=== PATIENT | female | born 1945 | race Caucasian/White ===

== ENCOUNTER 2017-12-04 07:21 | Outpatient (CLI) | payer MEDICARE | END 2017-12-04 07:22 | disposition home or self-care (01) | LOC: BICULT 07:21 | PROVIDERS: ATTEND Internal Medicine Gastroenterology | DX: K74.60 Unspecified cirrhosis of liver (principal); D71 Functional disorders of polymorphonuclear neutrophils; I85.00 Esophageal varices without bleeding | CPT/HCPCS: 76705 ==

== ENCOUNTER 2018-03-16 07:15 | Outpatient (CLI) | payer MEDICARE | END 2018-03-16 07:16 | disposition home or self-care (01) | LOC: BICULT 07:15 | DX: K74.69 Other cirrhosis of liver (principal); K72.90 Hepatic failure, unspecified without coma; K76.6 Portal hypertension; C64.1 Malignant neoplasm of right kidney, except renal pelvis; E43 Unspecified severe protein-calorie malnutrition; R18.8 Other ascites; N28.89 Other specified disorders of kidney and ureter | CPT/HCPCS: 76700 ==

== ENCOUNTER 2018-04-12 10:20 | Inpatient (IN) | payer MEDICARE ==
[2018-04-12] MEDS ORDERED: ePHEDrine/0.9% NaCl/PF SYRINGE 50 mg/10 ml ONE (11:14)
[2018-04-12] MEDS ORDERED: PHENYLEPHRINE-NS 100 MCG/ML 10 ML SYRINGE ONE (11:14)
--- NOTE | 2018-04-12 11:19 | RAD ---
FRONTAL VIEW CHEST: Date: 04/12/18 INDICATION: Emergency exam, decreased renal function. FINDINGS: There are granulomatous calcifications of the left chest. Lungs are hypoinflated with interstitial pr ominence. Cardiac silhouette is within normal limits of size for portable technique. No significant v ascular congestion. IMPRESSION: 1. Granulomatous calcifications. 2. Hypoinflated lungs with mild interstitial prominence, which could be related to interstitial joaquin g disease. Correlate clinically. POS: [facility]
[2018-04-12 11:26] LABS: #Eosinphils 0.2 thou/uL (0.0-0.7); #Lymphocytes 1.2 thou/uL (1.20-3.40); #Monocytes 1.5 thou/uL (0.11-0.59); #Neutrophils 9.3 thou/uL (1.40-6.50); %Basophils 0.3 % (0.0-1.0); %Eosinophils 1.4 % (0.0-10.0); %Lymphocytes 9.9 % (21.0-51.0); %Monocytes 12.5 % (0.0-10.0); %Neutrophils 75.9 % (42.0-75.0); Hemoglobin 9.9 g/dL (12.0-16.0); Mean Corpuscular HGB CONC 31.9 g/dL (32.0-36.0); Mean Corpuscular Hemoglobin 32.9 pg (27.0-31.0); Mean Platelet Volume 7.4 fL (7.4-10.4); Platelet Count 165 thou/uL (130-400); RBC Distribution Width 14.4 % (11.5-14.5); Red Blood Cell (RBC) Count 3.01 mill/uL (4.20-5.40); White Blood Cell (WBC) Count 12.2 thou/uL (4.8-10.8)
[2018-04-12 11:49] LABS: ALT (SGPT) 18 U/L (8-55); AST (SGOT) 33 U/L (5-34); Albumin 2.2 g/dL (3.4-4.8); Alkaline Phosphatase 114 U/L (40-150); Anion Gap 13 mmol/L (10-20); BUN (Urea Nitrogen) 46 mg/dL (9.8-20.1); Bilirubin, Total 1.6 mg/dL (0.2-1.2); Calc. Creatinine Clearance 0 mL/min (70-130); Carbon Dioxide 21 mmol/L (23-31); Chloride 102 mmol/L (98-107); Estimated GFR-MDRD 14; Globulin 4.3 g/dL (2.4-3.5); Glucose 128 mg/dL (83-110); Potassium 4.8 mmol/L (3.5-5.1); Protein, Total 6.5 g/dL (6.0-8.3); Sodium 131 mmol/L (136-145)
[2018-04-12 11:54] LABS: CKMB 2.2 ng/mL (0-6.6); Troponin I 0.035 ng/mL (< 0.028)
[2018-04-12 12:09] LABS: HBSAB Concentration 0.89 mIU/mL; HBSAg Index 0.19 S/CO (0-0.99); Hep B Core Total Ab Non-Reactive (NonReactive); Hep B Core Total Index 0.24 S/CO (0-0.79); Hep B Surf AB Non-Reactive (NonReactive); Hep B Surf Ag Non-Reactive S/CO (NonReactive); Hep C IgG Ab Non-Reactive (NonReactive); Hep C Index 0.14 S/CO (0-0.79)
[2018-04-12 12:40] LABS: Bilirubin Negative (Negative); Blood, Urine Negative (Negative); Clarity CLEAR (Clear); Glucose, Urine (Dipstick) Negative (Negative); Leukocyte Negative (Negative); Nitrite Negative (Negative); Protein, Urine (Dipstick) Negative (Neg-Trace); Specific Gravity, Urine 1.012 (1.002-1.036); Urobilinogen 0.2 mg/dL (0.2-1.0)
[2018-04-12] MEDS ORDERED: CEFAZOLIN/Water 2 GM/20 ML SYRINGE SLOW IVP SCH (14:15)
[2018-04-12] MEDS ORDERED: Meperidine HCl/PF 25 MG/ML VIAL ONE (15:25)
--- NOTE | 2018-04-12 15:27 | HP ---
DATE OF ADMISSION: 04/12/2018 PRIMARY CARE PROVIDER: Ole Israel M.D. LIBRARY CIRCULATION CLERK: Bill Masters M.D. HISTORY OF PRESENT ILLNESS: [facility] being re ferred to the emergency room by Dr. Masters. The patient is being referred for placement of hemodial ysis access and initiation of hemodialysis in an end-stage renal failure patient who is symptomatic. The patient is symptomatic with extreme fatigue, weakness, shortness of breath, chronic edema in her legs, minimal nausea. Past medical history is pertinent for cirrhosis. She is followed by a doctor in [place]. Her creatinine was 1 a year ago. She now has a creatinine of 3.56 with a calculated GF R of 13. PAST MEDICAL HISTORY: Pertinent for cirrhosis of the liver, history of bladder tumors post resection of same [address] Carranza, history of right lower renal mass, liver cirrhosis with ascit es. CURRENT MEDICATIONS: As available, Fosamax 70 mg every 7 days, Align 4 mg daily, Ziac 5/6.25 one a d ay, Cipro 250 b.i.d., Lasix 20 mg a day, levothyroxine 88 mcg a day, VESIcare 5 mg a day, tramadol 50 mg p.o. b.i.d. p.r.n. ALLERGIES: No known medical allergies. SOCIAL HISTORY: . Lives with her . Cared by her son. She has no history of alcohol or tobacco. CODE STATUS: Full. is next of kin. FAMILY HISTORY: Family available. They state that there is no history of any inheritable diseases i n the parents, aunts, uncles. REVIEW OF SYSTEMS: Difficult. The patient is a very poor historian, but she admitted to no headache , dizziness or fainting. Eyes: No blurred vision or double vision. Ear, nose and throat: No ear p ain or drainage. No nasal bleeding. No trouble swallowing. Cardiac: No chest pain, orthopnea or p aroxysmal nocturnal dyspnea. Respirations: Some shortness of breath especially with exertion. No c ough or wheezing. Gastrointestinal: Minimal nausea, no vomiting, no abdominal pain, no diarrhea. G enitourinary: She still makes urine. No blood or painful urination. Musculoskeletal: Long time sw elling in her legs, now worse. No pain. Neurologic: No strokes, seizures by history. Psychiatric: No anxiety, depression. Skin: Easy bruising, no rash. Heme/Lymph: No tender or swollen lymph no mireille under arms or neck or groin. PHYSICAL EXAMINATION: GENERAL: Alert, oriented and cooperative. VITAL SIGNS: Blood pressure 99/63, pulse 84, respirations 18, temperature 97.7. HEENT: Reveal pupils equal, round and reactive to light. Extraocular movements are intact. Sclerae are white. Tympanic membranes are clear. Nose clear. Oral mucous membranes are wet. Dental hygie ne is good. NECK: Supple without jugular venous distention. No adenopathy or thyromegaly. CHEST: Clear to auscultation and percussion. HEART: Regular rate and rhythm. First and second heart sounds were clear. ABDOMEN: Soft, mildly distended with a fluid wave. Bowel sounds were normal. There is no hepatospl enomegaly. EXTREMITIES: Reveal 2 to 3+ edema to the knees. No cyanosis or clubbing. SKIN: Warm and dry with ecchymoses on her forearms. HEME/LYMPH: No tender or swollen lymph nodes in axilla, inguinal or cervical area. PULSES: Carotid, radial and femoral pulses are intact. Pedal pulses obscured by edema. LABORATORY DATA: Sodium 131, potassium 4.8, BUN 46, creatinine 3.31. Blood sugar 128. Bilirubin mi nimally elevated at 1.6. Transaminases normal. Urine was clear. White count 12.2, hemoglobin 9.9, platelet count 165,000. IMAGING: Chest x-ray, no cardiomegaly, CHF or infiltrate, reviewed by me. EKG, regular sinus rhythm , no acute abnormality, reviewed by me. ADMITTING DIAGNOSES: Chronic kidney disease requiring hemodialysis, anemia of chronic kidney disease , cirrhosis of the liver, hypothyroidism, history of bladder tumors. PLAN: Dr. Santiago Ibarra will place hemodialysis catheter today. Dialysis will be started tomorrow. Current medications will be reviewed and instituted as necessary.
[2018-04-12] MEDS ORDERED: Bupivacaine HCl 0.5%/Epinephrine 1:200,000/PF 30 ml Vial ONE (15:28)
[2018-04-12] MEDS ORDERED: Sodium Chloride 0.9% 30 ML ONE (15:28)
[2018-04-12] MEDS ORDERED: Lidocaine 2% PF Inj 2 ML VIAL ONE (15:28)
[2018-04-12] MEDS ORDERED: Heparin 10,000 UNITS/1 ML VIAL ONE ×2 (15:28→18:18)
[2018-04-12] MEDS ORDERED: Albumin 25% 25 GM/100 ML BOT IVPB SCH (15:45)
[2018-04-12] MEDS ORDERED: Tuberculin PPD 0.1 ML VIAL I-DERMAL SCH (16:30)
[2018-04-12] MEDS ORDERED: CEFAZOLIN/Water 2 GM/20 ML SYRINGE ONE (17:09)
[2018-04-12] MEDS ORDERED: Midazolam HCl 2 mg/2 ml Vial ONE (17:35)
[2018-04-12] MEDS ORDERED: Fentanyl 100 MCG/2 ML VIAL ONE (17:35)
[2018-04-12] MEDS ORDERED: Propofol 500 MG/50 ML VIAL ONE ×2 (17:36→17:38)
[2018-04-12] MEDS ORDERED: Ketamine 50 MG/ML VIAL ONE (17:36)
--- NOTE | 2018-04-12 19:35 | RAD ---
PORTABLE CHEST ONE VIEW: 04/12/2018 7:05 p.m. HISTORY: Central line placement. FINDINGS: There has been interval placement of a right internal jugular dialysis catheter with the tip in the p rojection of the SVC since the earlier exam of 10:12 a.m. on the same date. No pneumothorax is seen. The remainder exam is otherwise stable. POS: [facility]
--- NOTE | 2018-04-12 20:55 | HP ---
HISTORY OF PRESENT ILLNESS: Coty Fontenot is a 72-year-old female followed Dr. Girard for chronic ki dney disease. She has had progression of her kidney failure and presents to the emergency room, had a right antecubital IV started and I have been asked to see her regarding placement of a dialysis cat heter. Plan is to place hemodialysis catheter today as well as a central line. We will obtain ultra sound vein mapping for later placement of a fistula. Her skin is fragile, ecchymotic and it is likel y she will need a prosthetic graft at a later time. ALLERGIES: None. TOBACCO: None. ALCOHOL: None. HOME MEDICATIONS: Include tramadol, VESIcare, levothyroxine, furosemide, Colace, bisoprolol hydrochl orothiazide daily, Align 4 mg daily, Tessalon daily, Fosamax daily. PAST SURGICAL HISTORY: Transurethral resection of a bladder tumor, 11/26/[address] Carranza, hi story of right lower pole renal mass suspicious for renal cell carcinoma, liver cirrhosis secondary t o jaundice and ascites in the past. PAST SURGICAL HISTORY: Other than above, noncontributory. PHYSICAL EXAMINATION: GENERAL: Patient is thin and extremities edematous. Ecchymosis of upper extremities. LUNGS: Clear to auscultation. Rhonchi at base. CARDIAC: Regular rate and rhythm. ABDOMEN: Soft, slightly protuberant. White count 12, hemoglobin 9, sodium 131, BUN 46, bilirubin 1.6, has been elevated at 3.8 in the pas t. Abdominal ultrasound on 07/29/2016, biliary sludge. Bile duct 4 mm. Liver was unremarkable. No evidence of ascites at that time. Currently, sodium 131, potassium 4.8, BUN 46, creatinine 3.31, GF R 14. White count 12, hemoglobin 9. ASSESSMENT AND PLAN: 1. End-stage renal disease. Plan for placement of hemodialysis catheter central line, planned that today, she ate breakfast at 6:00 this morning. We will plan that later this afternoon. 2. Poor conditioning. She has not been out of bed and ambulated in several months. She has had a p hysical deterioration. 3. Lives at home with family. 4. Antecubital IV present, has been removed. 5. We will need director long term care dialysis access. We will plan ultrasound vein mapping both arms and prese rve arms for dialysis access.
[2018-04-12] MEDS ORDERED: Acetaminophen 325 MG TAB PO PRN (23:33)
[2018-04-12] MEDS ORDERED: Ondansetron ODT 4 MG TAB PO PRN (23:33)
[2018-04-12] MEDS ORDERED: Zolpidem Tartrate 5 MG TAB PO PRN (23:33)
--- NOTE | 2018-04-12 23:55 | CON ---
DATE OF CONSULTATION: 04/12/2018 CONSULTING PHYSICIAN: Dr. Hinojosa REASON FOR CONSULTATION: Acute kidney injury and worsening creatinine. REASON FOR ADMISSION: Swelling. HISTORY OF PRESENT ILLNESS: A 72-year-old female with history of cirrhosis, bladder tumors, adenoma, liver cirrhosis, came to the hospital with swelling and worsening kidney function. The patient is i n need for dialysis and is being admitted. The patient is getting swelling. No fever or chills. No nausea, vomiting. PAST MEDICAL HISTORY: Positive for cirrhosis, bladder tumors, lower renal mass, liver cirrhosis. PAST SURGICAL HISTORY: Abdominal surgery. HOME MEDICATIONS: Fosamax, Align, Cipro, levothyroxine, VESIcare. DRUG ALLERGIES: No known drug allergies. SOCIAL HISTORY: No smoking, alcohol or drugs. FAMILY HISTORY: No history of kidney disease. REVIEW OF SYSTEMS: The following complete review of systems was negative, unless otherwise mentioned in the HPI or below: Constitutional: Weight loss or gain, ability to conduct usual activities. Sk in: Rash, itching. Eyes: Double vision, pain. ENT/Mouth: Nose bleeding, neck stiffness, pain, te nderness. Cardiovascular: Palpitations, dyspnea on exertion, orthopnea. Respiratory: Shortness of breath, wheezing, cough, hemoptysis, fever or night sweats. Gastrointestinal: Poor appetite, abdom inal pain, heartburn, nausea, vomiting, constipation, or diarrhea. Genitourinary: Urgency, frequenc y, dysuria, nocturia. Musculoskeletal: Pain, swelling. Neurologic/Psychiatric: Anxiety, depression . Allergy/Immunologic: Skin rash, bleeding tendency. PHYSICAL EXAMINATION: GENERAL: This is a well-built female in no apparent distress. VITAL SIGNS: Temperature 97.7, pulse 84, respiratory 18, blood pressure 157/64. HEENT: Atraumatic, normocephalic. Oral mucosa is moist. NECK: Supple, no masses. HEART: S1, S2. Rate and rhythm regular. RESPIRATORY: Clear. ABDOMEN: Soft. MUSCULOSKELETAL: 1-2+ edema. DERMATOLOGIC: No skin rash. NEUROLOGIC: Alert, awake. PSYCHIATRIC: Mood and affect. LABORATORY: Potassium 4.8, BUN 46, creatinine is 3.3, hemoglobin is 9.9. ASSESSMENT AND PLAN: 1. End-stage renal disease. Plan is to start on dialysis. 2. Edema, remove fluid as tolerated. The patient is high risk for complication. 3. Hypotension given the cirrhosis. 4. Hyponatremia, limit fluid intake. 5. Hypoalbuminemia. We will add Nepro with meals. 6. Anemia. We will add Epogen with dialysis. 7. Hypotension. 8. History of cirrhosis. The patient is at high risk for dialysis. We will attempt to have dialysis. Family is aware. We wi ll continue to follow and appreciate help from Surgery for access placement. Thank you for the consult.
--- NOTE | 2018-04-13 01:05 | OP ---
DATE OF PROCEDURE: 04/12/2018 PREOPERATIVE DIAGNOSES: End-stage renal disease, poor IV access. POSTOPERATIVE DIAGNOSES: End-stage renal disease, poor IV access. PROCEDURE: Right IJ cuffed tunnel hemodialysis catheter, precurved angiodynamics. Successful cannul ation of left internal jugular vein with J wire not thread. Placement of right femoral vein, triple lumen catheter. SURGEON: Santiago Ibarra M.D. ANESTHESIA: Intravenous sedation, local of 0.5% Marcaine with epinephrine 30 mL mixed with 2% Xyloca ine, 10 mL. PROCEDURE IN DETAIL: Patient was taken to the operating room where under intravenous sedation, neck and chest were prepared with ChloraPrep, draped in routine fashion. Local anesthetic infiltrated int o the skin and subcutaneous tissue about the operative site. Ultrasound used to cannulate the right and left internal jugular veins. J-wire threaded easily in the right and left, the J wire would not thread after multiple attempts was abandoned. Stab incision was made with the right chest. Using th e tunneling device, precurved angiodynamics cuffed tunnel hemodialysis catheter tunneled between the two incisions, placed the fabric cuff beneath the skin exit site and catheter secured with 2 interrup mauricio sutures of 3-0 nylon. Biopatch sterile dressings applied. Smaller medium size dilators placed o rosalie the J wire removed. Dilator and pull-away sheath placed over the J-wire in superior vena cava, d ilator and J-wire removed. Catheter placed with pull-away sheath, pull-away sheath removed. Fluoros copic images revealed good line placement. Platysma approximated with 4-0 Monocryl, skin with subder mal 4-0 Monocryl. DermaGlue and sterile dressings applied. Each port aspirated blood and flushed wi th saline solution and heparinized saline solution of 1000 units heparin per mL indicated volume of t he port. Seldinger technique used to place a right femoral vein dual-lumen catheter, removed the J wire after ChloraPrep and local anesthetic infiltrating skin and subcutaneous tissue. Catheter secured with 2 i nterrupted sutures of 3-0 nylon. Biopatch sterile dressing applied. Each port aspirated blood and f lushed with saline solution.
[2018-04-13 06:17] LABS: Anion Gap 12 mmol/L (10-20); BUN (Urea Nitrogen) 47 mg/dL (9.8-20.1); Calc. Creatinine Clearance 17 mL/min (70-130); Calcium 8.6 mg/dL (7.8-10.44); Carbon Dioxide 21 mmol/L (23-31); Chloride 103 mmol/L (98-107); Estimated GFR-MDRD 16; Glucose 69 mg/dL (83-110); Potassium 4.7 mmol/L (3.5-5.1); Sodium 131 mmol/L (136-145)
[2018-04-13 06:42] LABS: #Eosinphils 0.1 thou/uL (0.0-0.7); #Lymphocytes 0.7 thou/uL (1.20-3.40); #Monocytes 0.8 thou/uL (0.11-0.59); #Neutrophils 7.6 thou/uL (1.40-6.50); %Basophils 0.2 % (0.0-1.0); %Eosinophils 0.9 % (0.0-10.0); %Lymphocytes 7.7 % (21.0-51.0); %Monocytes 8.6 % (0.0-10.0); %Neutrophils 82.5 % (42.0-75.0); Hemoglobin 8.3 g/dL (12.0-16.0); Mean Corpuscular HGB CONC 32.4 g/dL (32.0-36.0); Mean Corpuscular Hemoglobin 33.4 pg (27.0-31.0); Mean Platelet Volume 7.5 fL (7.4-10.4); Platelet Count 112 thou/uL (130-400); RBC Distribution Width 14.3 % (11.5-14.5); White Blood Cell (WBC) Count 9.2 thou/uL (4.8-10.8)
--- NOTE | 2018-04-13 08:39 | PDOC.PN ---
- Subjective Encounter Start Date: 04/13/18 Encounter Start Time: 08:38 Subjective: alert, no CO - Objective Resuscitation Status: Resuscitation Status FULL:Full Resuscitation MAR Reviewed: Yes Vital Signs & Weight: Vital Signs (12 hours) Temp Pulse Resp BP Pulse Ox 04/13/18 07:44 84 16 106/68 100 04/13/18 03:39 97.4 F L 84 16 103/63 100 04/13/18 02:20 79 16 102/53 L 04/13/18 01:20 76 18 111/68 04/13/18 00:20 97.4 F L 84 16 103/63 100 04/12/18 23:50 77 16 104/52 L 04/12/18 22:50 75 16 113/67 04/12/18 22:20 97.6 F 82 16 111/66 100 Weight Weight 144 lb 6.4 oz I&O: 04/12/18 04/13/18 04/14/18 06:59 06:59 06:59 Intake Total 360 Balance 360 Result Diagrams: 04/13/18 05:55 04/13/18 05:55 Phys Exam - Physical Examination Neck: no JVD Respiratory: clear to auscultation bilateral Cardiovascular: RRR, no significant murmur Gastrointestinal: soft, positive bowel sounds Musculoskeletal: edema present Dx/Plan (1) ESRD needing dialysis Code(s): N18.6 - END STAGE RENAL DISEASE; Z99.2 - DEPENDENCE ON RENAL DIALYSIS Status: Acute (2) Cirrhosis of liver Code(s): K74.60 - UNSPECIFIED CIRRHOSIS OF LIVER Status: Acute Qualifiers: Ascites presence: with ascites (3) Anemia in CKD (chronic kidney disease) Code(s): N18.9 - CHRONIC KIDNEY DISEASE, UNSPECIFIED; D63.1 - ANEMIA IN CHRONIC KIDNEY DISEASE Status: Chronic Qualifiers: Chronic kidney disease stage: stage 5, not on chronic dialysis Qualified Code(s): N18.5 - Chronic kidney disease, stage 5; D63.1 - Anemia in chronic kidney disease - Plan initiate HD today, FU post HD -: home meds instituted except for diuretics -: 1600- doing well post 2 hrs HD * .
--- NOTE | 2018-04-13 09:20 | PRG ---
Patient Name: BRAYDON KERNS Date of service: 04/13/2018 Subjective: Patient was seen and examined at bedside and overnight events noted. Patient denies any shortness of breath or chest pain or palpitation. No history of nausea or vomiting or diarrhea or fever or chills or cramps. Objective: General: This is a well-built female in no apparent distress. Vital signs: Temperature 97.7, pulse 80, respiratory rate 18, blood pressure 106/68. HEENT: Atraumatic, normocephalic. Oral mucosa is moist. Neck: Supple. Cardiovascular: S1 S2 heard. Rate and rhythm regular. Respiratory: Clear to auscultation. Gastrointestinal: Abdomen is soft. Musculoskeletal: No tenderness. No edema. Dermatologic: No skin rash. Neurologic: Alert and awake and oriented X3. No focal neurologic deficits. Moving all the extremit ies. Psychiatric: Mood and affect normal. LABORATORY DATA: Potassium is 4.7, BUN 47, creatinine is 2.9. ASSESSMENT AND PLAN: 1. End-stage renal disease. Plan is to start dialysis today. We will remove fluid with dialysis. 2. Hypotension complicates ultrafiltration. We will follow and might use albumin. 3. Hypoalbuminemia. 4. Cirrhosis. 5. Anemia, will add Epogen with dialysis. The patient is high risk for dialysis. We will attempt to have ultrafiltration as tolerated. Limit fluid intake.
[2018-04-13] MEDS ORDERED: Albumin 25% 25 GM/100 ML BOT IVPB SCH (10:30)
--- NOTE | 2018-04-13 11:14 | ULT ---
BILATERAL UPPER EXTREMITY ULTRASOUND: History: Endstage renal disease. Evaluation for dialysis access. RIGHT UPPER EXTREMITY BRACHIAL ARTERY: 2.8 mm RADIAL ARTERY: 1.9 mm ULNAR ARTERY: 1.8 mm CEPHALIC VEIN Proximal Arm: 1.5 mm Mid Arm: 1.4 mm Distal Arm: 1.2 mm Antecubital Fossa: 1.4 mm Proximal Forearm: 0.7 mm Mid Forearm: 1.1 mm Distal Forearm: 0.8 mm BASILIC VEIN Proximal Arm: Not seen Mid Arm: 1.5 mm Distal Arm: 1.5 mm Antecubital Fossa: 1.0 mm Proximal Forearm: 0.7 mm Mid Forearm: 0.9 mm Distal Forearm: 0.6 mm LEFT UPPER EXTREMITY BRACHIAL ARTERY: 3.6 mm RADIAL ARTERY: 1.8 mm ULNAR ARTERY: 1.7 mm CEPHALIC VEIN Proximal Arm: 1.3 mm Mid Arm: 1.0 mm Distal Arm: 1.0 mm Antecubital Fossa: 1.0 mm Proximal Forearm: 1.0 mm Mid Forearm: 0.9 mm Distal Forearm: 0.6 mm BASILIC VEIN Proximal Arm: Not seen Mid Arm: Not seen Distal Arm: 1.0 mm Antecubital Fossa: 1.0 mm Proximal Forearm: 0.8 mm Mid Forearm: 1.2 mm Distal Forearm: 0.5 mm IMPRESSION: Vein mapping as described above. POS: [facility]
[2018-04-13] MEDS: Epoetin (ESRD) 20,000 UNITS/ML IVP SCH (16:17)
[2018-04-13] MEDS ORDERED: Epoetin (ESRD) 20,000 UNITS/ML IVP SCH (16:31)
[2018-04-14] MEDS: Levothyroxine Sodium 88 MCG TAB PO SCH (05:28)
[2018-04-14] MEDS ORDERED: Albumin 25% 25 GM/100 ML BOT IVPB SCH (09:00)
--- NOTE | 2018-04-14 09:00 | PRG ---
Patient Name: BRAYDON KERNS Date of service: 04/14/2018 Subjective: Patient was seen and examined at bedside and overnight events noted. Patient denies any shortness of breath or chest pain or palpitation. No history of nausea or vomiting or diarrhea or fever or chills or cramps. Objective: General: This is an elderly cachectic looking female in no apparent distress. Vital signs: Temperature 96, pulse 80, respiratory rate 18, blood pressure 108/62. HEENT: Atraumatic, normocephalic. Oral mucosa is moist. Neck: Supple. Cardiovascular: S1 S2 heard. Rate and rhythm regular. Respiratory: Clear to auscultation. Gastrointestinal: Abdomen is soft. Musculoskeletal: No tenderness. No edema. Dermatologic: No skin rash. Neurologic: Alert and awake and oriented X3. No focal neurologic deficits. Moving all the extremit ies. Psychiatric: Mood and affect normal. LABORATORY DATA: Potassium is 4.7, BUN 47, creatinine is 2.9. ASSESSMENT AND PLAN: 1. End-stage renal disease. Started on dialysis. Patient high risk for dialysis and hypotensive an d not able to have ultrafiltration. 2. Hypotension and we will use albumin with dialysis. 3. Hypoalbuminemia. 4. History of cirrhosis. 5. Anemia. We will continue Epogen. Prognosis guarded. We will continue on dialysis as tolerated, ultrafiltration as tolerated.
--- NOTE | 2018-04-14 14:08 | PDOC.PN ---
- Subjective Encounter Start Date: 04/14/18 Encounter Start Time: 14:06 Subjective: no sob, etc - Objective Resuscitation Status: Resuscitation Status FULL:Full Resuscitation MAR Reviewed: Yes Vital Signs & Weight: Vital Signs (12 hours) Temp Pulse Resp BP Pulse Ox 04/14/18 11:35 95.6 F L 87 18 109/59 L 97 04/14/18 04:00 97.6 F 80 20 108/62 94 L Weight Admit Weight 144 lb 6.4 oz Weight 101 lb 13.657 oz I&O: 04/13/18 04/14/18 04/15/18 06:59 06:59 06:59 Intake Total 360 200 Output Total 2 Balance 360 198 Result Diagrams: 04/13/18 05:55 04/13/18 05:55 Phys Exam - Physical Examination Neck: no JVD Respiratory: clear to auscultation bilateral Cardiovascular: RRR, no significant murmur Gastrointestinal: soft, positive bowel sounds Musculoskeletal: no edema Dx/Plan (1) ESRD needing dialysis Code(s): N18.6 - END STAGE RENAL DISEASE; Z99.2 - DEPENDENCE ON RENAL DIALYSIS Status: Acute (2) Cirrhosis of liver Code(s): K74.60 - UNSPECIFIED CIRRHOSIS OF LIVER Status: Acute Qualifiers: Ascites presence: with ascites (3) Anemia in CKD (chronic kidney disease) Code(s): N18.9 - CHRONIC KIDNEY DISEASE, UNSPECIFIED; D63.1 - ANEMIA IN CHRONIC KIDNEY DISEASE Status: Chronic Qualifiers: Chronic kidney disease stage: stage 5, not on chronic dialysis Qualified Code(s): N18.5 - Chronic kidney disease, stage 5; D63.1 - Anemia in chronic kidney disease - Plan tolerating HD well, cont per Renal -: cont levothyroxine, protonix, etc * .
[2018-04-15] MEDS: Levothyroxine Sodium 88 MCG TAB PO SCH (05:17)
[2018-04-15] MEDS ORDERED: Heparin 10,000 UNITS/ 10 ML VIAL ONE (08:20)
[2018-04-15] MEDS ORDERED: Albumin 25% 25 GM/100 ML BOT IVPB SCH (08:30)
--- NOTE | 2018-04-15 09:42 | PRG ---
Patient Name: BRAYDON KERNS Date of service: 04/15/2018 Subjective: Patient was seen and examined at bedside and overnight events noted. Patient denies any shortness of breath or chest pain or palpitation. No history of nausea or vomiting or diarrhea or fever or chills or cramps. Objective: General: This is an elderly female in no apparent distress. Vital signs: Temperature 96, pulse 87, respiratory rate 18, blood pressure 102/63. HEENT: Atraumatic, normocephalic. Oral mucosa is moist. Neck: Supple. Cardiovascular: S1 S2 heard. Rate and rhythm regular. Respiratory: Clear to auscultation. Gastrointestinal: Abdomen is soft. Musculoskeletal: No tenderness. No edema. Dermatologic: No skin rash. Neurologic: Alert and awake and oriented X3. No focal neurologic deficits. Moving all the extremit ies. Psychiatric: Mood and affect normal. LABORATORY DATA: Potassium is 4.7, BUN 47, creatinine is 2.9. ASSESSMENT AND PLAN: 1. End-stage renal disease on hemodialysis. Continue dialysis as tolerated. 2. Hypotension with history of cirrhosis. 3. Hypoalbuminemia. 4. Cardiorenal syndrome. 5. Anemia. Poor prognosis, but we will continue dialysis as tolerated.
[2018-04-15] MEDS: Epoetin (ESRD) 20,000 UNITS/ML IVP SCH (12:55)
--- NOTE | 2018-04-15 13:38 | PDOC.PN ---
- Subjective Encounter Start Date: 04/15/18 Encounter Start Time: 13:37 Subjective: appetite improved, feels much better. no sob , etc - Objective Resuscitation Status: Resuscitation Status FULL:Full Resuscitation MAR Reviewed: Yes Vital Signs & Weight: Vital Signs (12 hours) Temp Pulse Resp BP Pulse Ox 04/15/18 11:50 97.6 F 80 16 105/61 97 04/15/18 08:00 97.6 F 87 18 108/64 94 L 04/15/18 05:04 97.5 F L 67 18 102/63 96 Weight Admit Weight 144 lb 6.4 oz Weight 101 lb 13.657 oz I&O: 04/14/18 04/15/18 04/16/18 06:59 06:59 06:59 Intake Total 200 350 Output Total 2 Balance 198 350 Result Diagrams: 04/13/18 05:55 04/13/18 05:55 Phys Exam - Physical Examination Neck: no JVD Respiratory: clear to auscultation bilateral Cardiovascular: RRR, no significant murmur Gastrointestinal: soft, positive bowel sounds Musculoskeletal: no edema Dx/Plan (1) ESRD needing dialysis Code(s): N18.6 - END STAGE RENAL DISEASE; Z99.2 - DEPENDENCE ON RENAL DIALYSIS Status: Acute (2) Cirrhosis of liver Code(s): K74.60 - UNSPECIFIED CIRRHOSIS OF LIVER Status: Acute Qualifiers: Ascites presence: with ascites (3) Anemia in CKD (chronic kidney disease) Code(s): N18.9 - CHRONIC KIDNEY DISEASE, UNSPECIFIED; D63.1 - ANEMIA IN CHRONIC KIDNEY DISEASE Status: Chronic Qualifiers: Chronic kidney disease stage: stage 5, not on chronic dialysis Qualified Code(s): N18.5 - Chronic kidney disease, stage 5; D63.1 - Anemia in chronic kidney disease - Plan improving, cont HD, DC when approved by RENAL -: cont levothyroxine, ppi, etc * .
--- NOTE | 2018-04-16 12:15 | DIS ---
DATE OF ADMISSION: 04/12/2018 DATE OF DISCHARGE: 04/16/2018 DISCHARGE DIAGNOSES: 1. End-stage renal disease with hemodialysis. 2. Hepatic cirrhosis with ascites. 3. Anemia secondary to chronic kidney disease. 4. Deconditioning. 5. Hypervolemia. CONSULTATIONS: Dr. Masters with Nephrology Service. Dr. Ibarra with General Surgery Service. PERTINENT LABORATORY DATA AND IMAGING DATA: Sodium 131, creatinine ranged between 2.92-3.31. Estima mauricio GFR ranging between 14-16. BNP 198. CBC showed white blood cell count ranging between 9.2-12.2, hemoglobin ranged between 8.3-9.9. Hepatitis B and C negative 04/12/2018. Portable chest x-ray dai ed 04/12/2018 showed hypoinflation of bilateral lung moore with mild interstitial prominence. HOSPITAL COURSE: Patient was admitted after initially presenting with end-stage renal disease and ne ed for initiation of hemodialysis. The patient was noted with increasing edema, ascites, undergoing placement of tunneled hemodialysis catheter as well as placement of a tunneled right internal jugular hemodialysis catheter. The patient underwent successful hemodialysis throughout the hospital course with overall improvement in volume status. Patient did show improvement in functional status and mo bilization in her room. Due to overall deconditioned status, patient was deemed appropriate for ongo ing home health services including physical therapy after discharge. The patient received local woun d care for multiple areas of skin breakdown through wound care services and tolerated regular oral in take. The patient overall clinically stabilized after initiation of hemodialysis. I have examined t he patient at the time of discharge and discussed followup instructions at which point patient and juan merchant verbalized understanding and agreement. The patient ready for discharge on 04/16/2018. DISCHARGE MEDICATIONS: 1. Lactulose 10 grams p.o. b.i.d. 2. Levothyroxine 88 mcg p.o. daily. 3. Protonix 40 mg p.o. b.i.d. FOLLOWUP: Patient will follow up with her primary care provider, Dr. Ole Israel within 7 days of discharge. The patient will follow up with Dr. Masters with hemodialysis Thursday, Thursday, and ay. CONDITION ON DISCHARGE: Fair. ACTIVITY: Ad stephani. Rolling walker for ambulation. SPECIAL INSTRUCTIONS: Home health for physical therapy and wound care services. DIET: Renal. CODE STATUS: FULL. DISPOSITION: Home with home health services on 04/16/2018. Total time preparing and coordinating discharge is 33 minutes.
--- NOTE | 2018-04-16 15:02 | PRG ---
DATE OF SERVICE: 04/16/2018 SUBJECTIVE: Patient was seen and examined at bedside and overnight events noted. Patient denies any shortness of breath or chest pain or palpitation. No history of nausea or vomitin g or diarrhea or fever or chills or cramps. OBJECTIVE: GENERAL: This is a well-built female, in no apparent distress. VITAL SIGNS: Temperature 97.7, pulse 86, respiratory rate 16, blood pressure 107/67. HEENT: Atraumatic, normocephalic. Oral mucosa is moist. NECK: Supple. CARDIOVASCULAR: S1 and S2 heard. Rate and rhythm regular. RESPIRATORY: Clear to auscultation. GASTROINTESTINAL: Abdomen is soft. MUSCULOSKELETAL: No tenderness. No edema. DERMATOLOGIC: No skin rash. NEUROLOGIC: Alert and awake and oriented x3. No focal neurologic deficits. Moving all the extremit ies. PSYCHIATRIC: Mood and affect normal. LABORATORY: Not done today. ASSESSMENT AND PLAN: 1. End-stage renal disease. Continue on hemodialysis as tolerated. 2. Hypotension with history of cirrhosis. 3. Hypoalbuminemia. 4. Cardiorenal syndrome. 5. Anemia. The patient is stable for discharge from Nephrology standpoint. Follow up with dialysis clinic.
[2018-04-16 16:12] VITALS: BMI 18.6
[2018-04-16 16:19] VITALS: BP 96/48; TEMP 97.9
[2018-04-16] MEDS: Levothyroxine Sodium 88 MCG TAB PO SCH (17:31)
== END 2018-04-16 17:45 | disposition home or self-care (01) | DRG 673 ==
LOC: ERS 10:20 → SURG A 12:08 → T4-B 22:31 → OBSVTOIN 23:33
PROVIDERS: ADMIT Internal Medicine; ATTEND Internal Medicine
PROC: 0JH63XZ Insertion of Tunneled Vascular Access Device into Chest Subcutaneous Tissue and Fascia, Percutaneous Approach (ICD-10-PCS; principal; 2018-04-12)
PROC: 06HM33Z Insertion of Infusion Device into Right Femoral Vein, Percutaneous Approach (ICD-10-PCS; 2018-04-12)
PROC: 5A1D70Z Performance of Urinary Filtration, Intermittent, Less than 6 Hours Per Day (ICD-10-PCS; 2018-04-12)
DX: I13.11 Hypertensive heart and chronic kidney disease without heart failure, with stage 5 chronic kidney disease, or end stage renal disease (principal); N18.6 End stage renal disease; E87.1 Hypo-osmolality and hyponatremia; D63.1 Anemia in chronic kidney disease; K74.60 Unspecified cirrhosis of liver; E03.9 Hypothyroidism, unspecified; R60.9 Edema, unspecified; I95.9 Hypotension, unspecified; K21.9 Gastro-esophageal reflux disease without esophagitis; Z85.51 Personal history of malignant neoplasm of bladder
CPT/HCPCS: 36415; 71045; 80048; 80053; 81003; 82553; 83880; 84484; 85025; 86580; 86704; 86706; 86803; 87340; 90935; 93005; 93970; A4353; C1752; C1769; G0257; G0365; J0670; J1644; J2175; J2250; J2704; J3010; P9047; Q4081

== ENCOUNTER 2018-05-03 08:17 | Inpatient (IN) | payer MEDICARE ==
[2018-05-03 08:52] LABS: Base Excess-Venous 3.9 mmol/L (0 (+/- 2.5)); Bicarbonate (HCO3v) 27.4 mmol/L (1.0-85.0); CO2 Tension (PvCO2) 35.9 mmHg (41.0-51.0); Calcium, Ionized 1.11 mmol/L (1.12-1.32); O2 Tension (PvO2) 43.7 mmHg (35.0-45.0); Potassium 4.1 mmol/L (3.4-4.7); T. Carbon Dioxide 28.5 mmol/L (1.0-85.0); vO2 Saturation-calc 83.4 % (94-98)
[2018-05-03 08:58] LABS: INR-International Normal Ratio 1.7; PTT 36.6 SEC (22.9-36.1); Prothrombin Time 19.7 SEC (12.0-14.7)
[2018-05-03 09:08] LABS: ALT (SGPT) 12 U/L (8-55); AST (SGOT) 31 U/L (5-34); Albumin 2.3 g/dL (3.4-4.8); Alkaline Phosphatase 94 U/L (40-150); Anion Gap 11 mmol/L (10-20); BUN (Urea Nitrogen) 27 mg/dL (9.8-20.1); Bilirubin, Total 2.1 mg/dL (0.2-1.2); Calc. Creatinine Clearance 0 mL/min (70-130); Calcium 8.4 mg/dL (7.8-10.44); Carbon Dioxide 28 mmol/L (23-31); Chloride 97 mmol/L (98-107); Estimated GFR-MDRD 7; Globulin 3.6 g/dL (2.4-3.5); Glucose 81 mg/dL (83-110); Lipase 38 U/L (8-78); Potassium 4.2 mmol/L (3.5-5.1); Protein, Total 5.9 g/dL (6.0-8.3); Sodium 132 mmol/L (136-145)
[2018-05-03 09:09] LABS: Bilirubin Moderate (Negative); Blood, Urine Negative (Negative); Clarity TURBID (Clear); Glucose, Urine (Dipstick) Negative (Negative); Leukocyte Large (Negative); Nitrite Positive (Negative); Protein, Urine (Dipstick) 30 mg/dL (Neg-Trace); Specific Gravity, Urine 1.022 (1.002-1.036)
[2018-05-03 09:11] LABS: #Basophils 0.1 thou/uL (0.0-0.2); #Eosinphils 0.2 thou/uL (0.0-0.7); #Monocytes 1.6 thou/uL (0.11-0.59); #Neutrophils 7.1 thou/uL (1.40-6.50); %Basophils 0.6 % (0.0-1.0); %Eosinophils 1.5 % (0.0-10.0); %Lymphocytes 18.1 % (21.0-51.0); %Monocytes 14.8 % (0.0-10.0); %Neutrophils 65.1 % (42.0-75.0); Hemoglobin 9.9 g/dL (12.0-16.0); Mean Corpuscular HGB CONC 30.3 g/dL (32.0-36.0); Mean Corpuscular Hemoglobin 32.2 pg (27.0-31.0); Mean Platelet Volume 7.9 fL (7.4-10.4); Platelet Count 139 thou/uL (130-400); RBC Distribution Width 15.1 % (11.5-14.5); Red Blood Cell (RBC) Count 3.08 mill/uL (4.20-5.40); White Blood Cell (WBC) Count 10.9 thou/uL (4.8-10.8)
[2018-05-03 09:11] LABS: Squamous Epithelial 0-3 HPF (0-3)
[2018-05-03 09:12] LABS: CKMB 0.9 ng/mL (0-6.6)
[2018-05-03 09:13] LABS: Pathc Cast-AUWi Flag 5.08 (0-2.49); Yeast-AUWi Flag 749.5 (0-25.0)
[2018-05-03 09:23] LABS: Bacteria/HPF 1+ HPF (None Seen); Hyaline Casts/LPF 0-3 HYALINE CAST LPF (0-3 Hyaline); Manual Microscopic Reviewed? No Path Casts Seen; Renal Epithelial 0-3 HPF (0-3); Yeast-All Forms 2+ HPF (None Seen)
[2018-05-03 09:24] LABS: RBC/HPF 0-3 HPF (0-3)
[2018-05-03 09:34] LABS: Hypochromia SLIGHT = 6-15 cells (100X) (0-5/hpf); MDiff Complete? YES; Macrocytosis SLIGHT = 6-15 cells (100X) (0-5/hpf); PLT Morphology Comment Appears Adequate; Polychromasia SLIGHT = 2-3 cells (100X) (0-2/hpf)
[2018-05-03] MEDS ORDERED: Piperacillin/Tazobactam 4.5 GM VIAL ONE (09:41)
--- NOTE | 2018-05-03 10:07 | RAD ---
SINGLE VIEW OF THE CHEST: Comparison: 04-12-18 History: Weakness. Dyspnea. FINDINGS: Single view of the chest shows a normal sized cardiomediastinal silhouette. A calcified granuloma pro jects over the left lateral thorax. There is no evidence of consolidation or pleural effusions. IMPRESSION: No evidence of acute cardiopulmonary disease. POS: [facility]
[2018-05-03 11:39] VITALS: BMI 21.9
[2018-05-03 12:39] LABS: Troponin I 0.028 ng/mL (< 0.028)
[2018-05-03 13:54] LABS: Lactic Acid 2.3 mmol/L (0.5-2.2)
[2018-05-03] MEDS ORDERED: Acetaminophen 500 MG TAB PO PRN (15:35)
[2018-05-03] MEDS ORDERED: Ondansetron ODT 4 MG TAB PO PRN (15:35)
[2018-05-03] MEDS ORDERED: Ondansetron PF 4 MG/2 ML Vial IVP PRN (15:35)
[2018-05-03 15:58] LABS: Troponin I 0.019 ng/mL (< 0.028)
[2018-05-03] MEDS ORDERED: Vancomycin Sliding Scale 1 EACH FS ONE (16:00)
[2018-05-03] MEDS ORDERED: Vancomycin HCl 1 GM in Premix Bag 1 BAG IVPB SCH (16:00)
[2018-05-03] MEDS ORDERED: HOLD VANCOMYCIN FOR LEVEL >20 FS SCH (16:00)
[2018-05-03] MEDS ORDERED: Vancomycin HCl 500 MG in Sodium Chloride 0.9% 100 ML IVPB SCH (16:00)
[2018-05-03] MEDS ORDERED: Vancomycin HCl 250 MG in Sodium Chloride 0.9% 100 ML IVPB SCH (16:00)
[2018-05-03] MEDS ORDERED: Vancomycin HCl 750 MG in Sodium Chloride 0.9% 250 ML 250 ML IVPB SCH (16:00)
[2018-05-03] MEDS: Sodium Chloride 0.9% 1,000 ML IV SCH (16:02)
[2018-05-03] MEDS: cefTRIAXone\\ROCEPHIN 2 GM in Sodium Chloride 0.9% 100 ML IVPB SCH (16:05)
--- NOTE | 2018-05-03 18:04 | CON ---
DATE OF CONSULTATION: 05/03/2018 CONSULTING PHYSICIAN: Andrade Rivero MD from ER. REASON FOR CONSULTATION: End stage renal disease evaluation and care REASON FOR ADMISSION: Shortness of breath, swelling. HISTORY OF PRESENT ILLNESS: A 72-year-old female with a history of cirrhosis, bladder tumor, renal mass who came to the hospital with above complaints. The patient was found to have shortness of breath. The patient was recently started on dialysis, but not able to remove much fluid due to hypotension. She is chronically hypotensive. She was taken to the ER today with chronic hypotension and was found to have possible UTI and being admitted. Blood pressure was in the 80s/40s and it got better to 100s with some fluid administration. PAST MEDICAL HISTORY: Positive for cirrhosis, bladder tumor, renal mass. PAST SURGICAL HISTORY: Bladder tumor resection, dialysis access placement HOME MEDICATIONS: Protonix, levothyroxine, lactulose. ALLERGIES: No known drug allergies. SOCIAL HISTORY: No smoking, alcohol, or drug use. FAMILY HISTORY: No history of kidney disease. REVIEW OF SYSTEMS: The following complete review of systems was negative, unless otherwise mentioned in the HPI or below: Constitutional: Weight loss or gain, ability to conduct usual activities. Skin: Rash, itching. Eyes: Double vision, pain. ENT/Mouth: Nose bleeding, neck stiffness, pain, tenderness. Cardiovascular: Palpitations, dyspnea on exertion, orthopnea. Respiratory: Shortness of breath, wheezing, cough, hemoptysis, fever, or night sweats. Gastrointestinal: Poor appetite, abdominal pain, heartburn, nausea, vomiting, constipation, or diarrhea. Genitourinary: Urgency, frequency, dysuria, nocturia. Musculoskeletal: Pain, swelling. Neurologic/Psychiatric: Anxiety, depression. Allergy/Immunologic: Skin rash, bleeding tendency. PHYSICAL EXAMINATION: GENERAL: This is an ill-looking white female in no apparent distress. VITAL SIGNS: Temperature 97.6, pulse 74, respiratory rate 18, blood pressure 98 /50. HEENT: Atraumatic, normocephalic. NECK: Supple. CARDIOVASCULAR: S1, S2 heard. RESPIRATORY: Clear. GASTROINTESTINAL: Abdomen is soft. MUSCULOSKELETAL: 2+ edema. DERMATOLOGIC: No skin rash. NEUROLOGIC: Alert, awake. PSYCHIATRIC: Mood and affect normal. LABORATORY DATA: Hemoglobin is 9.9, potassium is 4.1, BUN is 27, creatinine is 6.2. ASSESSMENT AND PLAN: 1. End-stage renal disease. Plan is to have dialysis. The patient is not able to tolerate ultrafiltration. 2. Hepatorenal syndrome with severe acidosis. 3. Hypoalbuminemia secondary to cirrhosis. 4. Edema. 5. Hypotension. 6. Anemia. 7. Prognosis is guarded. We will attempt to have dialysis with ultrafiltration as tolerated. Continue sepsis workup and I will follow up. [facility]
[2018-05-03] MEDS: Midodrine HCl 5 MG TAB PO SCH (20:26)
[2018-05-03] MEDS: Rifaximin 550 MG TAB PO SCH (20:26)
[2018-05-03] MEDS ORDERED: Famotidine 20 MG TAB PO SCH (21:00)
[2018-05-03] MEDS ORDERED: Vancomycin HCl 0.75 GM in Sodium Chloride 0.9% 250 ML 300 ML IVPB SCH (21:00)
--- NOTE | 2018-05-03 23:15 | HP ---
DATE OF ADMISSION: 05/03/2018 PRIMARY CARE PHYSICIAN: Dr. Israel. PRIMARY TRUCK LOADER OVERHEAD CRANE: Dr. Masters. CHIEF COMPLAINT: Low blood pressure. HISTORY OF PRESENT ILLNESS: This is a 72-year-old female who presents to [facility] Emergency Department complaining of hypotension over the last 3 days. Patient with known history of end-stage renal disease, presenting as a new hemodialysis patient with last dialysis on 04/28/2018 . Family members reported patient's blood pressure measuring 70/40 at home on the morning of admissi on. Patient was unable to complete her scheduled hemodialysis on 04/30/2018 due to hypotension. Fanta joyce was apparently placed on midodrine by her poultry scientist on 04/30/2018. Patient was notably admit mauricio to [facility] from 04/12/2018 through 04/16/2018 with initiation of hemodialysis. Ricardo laura has been compliant with her chronic medication regimen with the additional midodrine added in the last several days prior to this evaluation. In the emergency room, patient underwent general evaluat ion with urinalysis concerning for infectious process. Patient was noted with blood pressures in the 86/22 and given intravenous normal saline as well as vancomycin and Zosyn after concern for potentia l sepsis picture. Patient received a total of 1.5 liters of normal saline with stabilization of bloo d pressure in the low 90s and transferred to the Intermediate Care Unit for further evaluation. PAST MEDICAL HISTORY: 1. End-stage renal disease with hemodialysis. 2. Hypotension, likely iatrogenic. 3. Hepatic cirrhosis with ascites. 4. Anemia secondary to chronic kidney disease. 5. Deconditioning. 6. History of bladder tumor, status post resection. 7. Right renal mass. PAST SURGICAL HISTORY: 1. Status post bladder tumor resection. 2. Status post hemodialysis catheter placement. CURRENT MEDICATIONS: 1. Lactulose 10 grams p.o. b.i.d. p.r.n. 2. Levothyroxine 88 mcg p.o. daily. 3. Protonix 40 mg p.o. b.i.d. 4. Midodrine 10 mg p.o. t.i.d. 5. Xifaxan 550 mg p.o. b.i.d. ALLERGIES: No known drug allergies. FAMILY HISTORY: No inheritable diseases per patient report. SOCIAL HISTORY: Patient resides in the [place], [place] area. Accompanied by her [id number] in the hospital. . No current alcohol, tobacco, or illicit drug use. Receiving home health services with including physical therapy. REVIEW OF SYSTEMS: The following complete review of systems was otherwise negative, except as stated per HPI: Constitutional: Weight loss or gain, ability to conduct usual activities. Skin: Rash, i tching. Eyes: Double vision, pain. ENT/Mouth: Nose bleeding, neck stiffness, pain, tenderness. C ardiovascular: Palpitations, dyspnea on exertion, orthopnea. Respiratory: Shortness of breath, whe ezing, cough, hemoptysis, fever, or night sweats. Gastrointestinal: Poor appetite, abdominal pain, heartburn, nausea, vomiting, constipation, or diarrhea. Genitourinary: Urgency, frequency, dysuria, nocturia. Musculoskeletal: Pain, swelling. Neurologic/Psychiatric: Anxiety, depression. Allergy /Immunologic: Skin rash, bleeding tendency. PHYSICAL EXAMINATION: VITAL SIGNS: Currently, blood pressure 104/56, pulse 81, respiratory rate 16, temperature 97.7 degre es Fahrenheit, O2 saturation 100% on 2 liters per minute by nasal cannula. GENERAL APPEARANCE: This is a 72-year-old female, alert and responsive, frail appearing, i n no acute distress. HEENT: Pupils are equal, round, and reactive to light and accommodation. Extraocular muscles are in tact. No scleral icterus, no conjunctival injection. Nares patent. OP is clear. Teeth in fair rep air. NECK: Supple, no cervical adenopathy, no thyromegaly, no carotid bruits, no JVD appreciated. Cervic al spine full active and passive range of motion. No meningeal signs noted. CHEST: Lungs are clear to auscultation bilaterally. CARDIOVASCULAR: S1, S2 without noted murmur, rub, or gallop. ABDOMEN: Protuberant with midline abdominal hernia. Bowel sounds are positive in all four quadrants . No palpable mass. EXTREMITIES: Warm and dry with fair turgor. Pitting edema to the knees bilaterally. Pulses palpabl e distally at the dorsalis pedis, posterior tibial arteries. Capillary refill less than 2 seconds. SKIN: Shows multiple areas of ecchymosis on the back, chest, and upper extremities. NEUROLOGIC: Cranial nerves II through XII are grossly intact. No focal or lateralizing signs apprec iated. Patient observed ambulatory during this exam. PERTINENT LABORATORY AND X-RAY FINDINGS: Sodium 135, potassium 4.1, chloride 97, CO2 of 28, BUN 27, creatinine 6.26, estimated GFR of 7. Lactic acid level ranged between 2.3 to 2.8, calcium 8.4. Tota l bilirubin 2.1, AST 31, ALT of 12, alkaline phosphatase 94. Troponin I ranged between 0.028 to 0.03 0, lipase 38. Albumin 2.3. CBC showed white blood cell count of 10.9, hemoglobin 10, hematocrit 33, MCV 106, platelet count 139 with 65% neutrophils. PT 19.7, INR 1.7, PTT 37. Urinalysis showed posi tive protein, ketones, nitrite, and leukocyte esterase positive. Greater than 50 to too numerous to count wbcs per high power field, 11-20 transitional epithelial cells noted. Portable chest x-ray dai ed on 05/03/2018 by my interpretation showed no acute cardiopulmonary process. EKG dated 05/03/2018 by my interpretation shows baseline artifact. Sinus mechanism with heart rates in the 80s. Incomple te right bundle branch pattern. Left axis deviation. ASSESSMENT AND PLAN: 1. Sepsis. Patient will be admitted to the intermediate care unit. Suspect urinary tract source. We will continue empiric coverage with Rocephin 2 grams IV q.24 hours with additional vancomycin 750 mg IV q.24 hours, adjusting for renal failure. Blood and urine cultures pending. 2. Hypotension. Suspect multifactorial including iatrogenic component. We will continue intravenou s normal saline at 75 mL per hour. Patient received 1.5 liters in the emergency department. Hold al l antihypertensive medications and lactulose. 3. End-stage renal disease with hemodialysis. We will consult Nephrology service for timing of next hemodialysis session. Current hypotension precludes initiation of hemodialysis. 4. Hepatic cirrhosis. We will resume Xifaxan 550 mg p.o. b.i.d. Continue lactulose 10 grams p.o. b .i.d. 5. Deconditioning. PT consult for functional assessment. General fall risk precautions. 6. Prophylaxis. Sequential compression devices will be held due to lower extremity edema. Protonix 40 mg p.o. b.i.d. 7. Code status is FULL. Surrogate medical decision maker is patient's spouse.
[2018-05-04] MEDS: Sodium Chloride 0.9% 1,000 ML IV SCH (04:09)
[2018-05-04 04:57] LABS: ALT (SGPT) 9 U/L (8-55); AST (SGOT) 23 U/L (5-34); Albumin 1.8 g/dL (3.4-4.8); Alkaline Phosphatase 80 U/L (40-150); Anion Gap 12 mmol/L (10-20); BUN (Urea Nitrogen) 30 mg/dL (9.8-20.1); Calc. Creatinine Clearance 7 mL/min (70-130); Calcium 7.6 mg/dL (7.8-10.44); Carbon Dioxide 26 mmol/L (23-31); Chloride 101 mmol/L (98-107); Estimated GFR-MDRD 7; Glucose 111 mg/dL (83-110); Protein, Total 4.8 g/dL (6.0-8.3); Sodium 135 mmol/L (136-145)
[2018-05-04 05:06] LABS: Band 3 % (5-11); Eosinophils 1 % (0-10); Hemoglobin 8.3 g/dL (12.0-16.0); Lymphocytes 6 % (21-51); MDiff Complete? YES; Macrocytosis SLIGHT = 6-15 cells (100X) (0-5/hpf); Mean Corpuscular HGB CONC 31.1 g/dL (32.0-36.0); Mean Corpuscular Hemoglobin 33.1 pg (27.0-31.0); Mean Platelet Volume 7.7 fL (7.4-10.4); Monocytes 14 % (0-10); Neutrophil 76 % (42-75); PLT Morphology Comment Appears Decreased; Platelet Count 108 thou/uL (130-400); RBC Distribution Width 14.6 % (11.5-14.5); Red Blood Cell (RBC) Count 2.51 mill/uL (4.20-5.40); White Blood Cell (WBC) Count 8.8 thou/uL (4.8-10.8)
[2018-05-04] MEDS: Levothyroxine Sodium 88 MCG TAB PO SCH (06:22)
[2018-05-04 08:56] LABS: Vancomycin, Random 11.2 ug/mL (See Comment)
[2018-05-04] MEDS: Midodrine HCl 5 MG TAB PO SCH ×3 (10:02→21:00)
[2018-05-04] MEDS: Rifaximin 550 MG TAB PO SCH ×2 (10:05→20:59)
[2018-05-04] MEDS ORDERED: Vancomycin HCl 500 MG in Sodium Chloride 0.9% 100 ML IVPB SCH (12:00)
[2018-05-04] MEDS: cefTRIAXone\\ROCEPHIN 2 GM in Sodium Chloride 0.9% 100 ML IVPB SCH (15:46)
--- NOTE | 2018-05-04 17:41 | PRG ---
DATE OF SERVICE: 05/04/2018 SUBJECTIVE: Patient was seen and examined at bedside and overnight events noted. Patient denies any shortness of breath or chest pain or palpitation. No history of nausea or vomiting or diarrhea or f ever or chills or cramps. OBJECTIVE: GENERAL: This is a chronically ill-looking white female in no apparent distress. VITAL SIGNS: Temperature 97.9, pulse 80, respiratory rate 22, blood pressure 107/60. HEENT: Atraumatic, normocephalic. Oral mucosa is moist. NECK: Supple CARDIOVASCULAR: S1, S2 heard. Rate and rhythm regular. RESPIRATORY: Clear to auscultation. GASTROINTESTINAL: Abdomen is soft. MUSCULOSKELETAL: 1+ edema. DERMATOLOGIC: No skin rash. NEUROLOGIC: Alert, awake, and oriented x3. No focal neurologic deficits. Moving all the extremitie s. PSYCHIATRIC: Mood and affect normal. LABORATORY DATA: Potassium is 4.0, BUN is 30, creatinine is 6.1. ASSESSMENT AND PLAN: 1. End-stage renal disease. Plan is to have dialysis Thursday, Thursday, and Thursday. 2. Hepatorenal syndrome. 3. History of cirrhosis and edema, stable. 4. Hypotension, chronic. Continue on midodrine. We will use albumin with dialysis. The patient is high risk for dialysis. W e will continue to monitor.
--- NOTE | 2018-05-04 22:13 | PDOC.PN ---
- Subjective Encounter Start Date: 05/04/18 Encounter Start Time: 14:00 Subjective: f/u for hypotension, sepsis, ESRD on HD. Feeling better overall -: Did not ambulate today. No current fever noted. Tolerating po -: intake. - Objective Resuscitation Status: Resuscitation Status FULL:Full Resuscitation MAR Reviewed: Yes Vital Signs & Weight: Vital Signs (12 hours) Temp Pulse Resp BP BP Pulse Ox 05/04/18 21:10 99 05/04/18 19:34 98.0 F 71 17 106/54 L 95 05/04/18 15:58 98.0 F 74 24 H 103/28 L 99 05/04/18 11:23 97.9 F 88 22 H 107/60 100 Weight Admit Weight 119 lb 14.903 oz Weight 119 lb 14.903 oz I&O: 05/03/18 05/04/18 05/05/18 06:59 06:59 06:59 Intake Total 718 985 Balance 718 985 Result Diagrams: 05/04/18 03:48 05/04/18 03:48 Additional Labs: Microbiology 05/03/18 09:04 Venous blood - Left Hand Blood Culture - Preliminary Specimen has been received and culture in progress. No Growth to date. 05/03/18 09:04 Venous blood - Left Arm Blood Culture - Preliminary Specimen has been received and culture in progress. No Growth to date. 05/03/18 08:51 Urine Straight Catheter Urine Culture - Preliminary NO GROWTH AT 24 HOURS Laboratory Tests 05/03/18 05/04/18 05/04/18 08:36 03:48 03:48 WBC 10.9 H Hgb 9.9 L Cortisol 6.30 Random Vancomycin 11.2 EKG Reviewed by me: Yes (Tele - SR) Phys Exam - Physical Examination Constitutional: NAD responds to questions, frail HEENT: PERRLA, sclera anicteric, oral pharynx no lesions Neck: no nodes, no JVD, supple, full ROM Respiratory: no wheezing, no rales, no rhonchi, clear to auscultation bilateral S1, S2 Cardiovascular: RRR, no significant murmur, no rub, gallop Gastrointestinal: soft, non-tender, no distention, positive bowel sounds Musculoskeletal: pulses present, edema present Neurological: normal sensation, moves all 4 limbs Skin: normal turgor, cap refill <2 seconds Dx/Plan (1) Sepsis Code(s): A41.9 - SEPSIS, UNSPECIFIED ORGANISM Status: Acute Comment: Suspected, continue Vancomycin/Rocephin another 24h (2) Hypotension Status: Chronic Comment: Likely chronic condition, continue Midodrine, avoid antihypertensives (3) ESRD (end stage renal disease) on dialysis Code(s): N18.6 - END STAGE RENAL DISEASE; Z99.2 - DEPENDENCE ON RENAL DIALYSIS Status: Chronic Comment: HD per Renal service, high risk for worsening hypotension, may need to consider Palliative care (4) Cirrhosis of liver Code(s): K74.60 - UNSPECIFIED CIRRHOSIS OF LIVER Status: Chronic Qualifiers: Ascites presence: with ascites Comment: Likely hepatorenal syndrome (5) Physical deconditioning Code(s): R53.81 - OTHER MALAISE Status: Chronic Comment: PT for functional assessment and mobilization (6) Anemia in CKD (chronic kidney disease) Code(s): N18.9 - CHRONIC KIDNEY DISEASE, UNSPECIFIED; D63.1 - ANEMIA IN CHRONIC KIDNEY DISEASE Status: Chronic Qualifiers: Chronic kidney disease stage: stage 5, not on chronic dialysis Qualified Code(s): N18.5 - Chronic kidney disease, stage 5; D63.1 - Anemia in chronic kidney disease Comment: No evidence of active blood loss, serial CBC - Plan plan discussed w/ family, continue antibiotics, PT/OT, criminal justice social worker, out of bed/ambulate Stable currently -: Continue Rocephin/Vancomycin another 24h -: HD per Renal service, minimal volume removal given hypotension -: Continue Midodrine -: AM lab: H/H * .
[2018-05-05 04:52] LABS: Hemoglobin 8.7 g/dL (12.0-16.0)
[2018-05-05] MEDS: Levothyroxine Sodium 88 MCG TAB PO SCH (05:19)
[2018-05-05] MEDS: Rifaximin 550 MG TAB PO SCH ×2 (09:35→20:36)
[2018-05-05] MEDS: Midodrine HCl 5 MG TAB PO SCH ×3 (09:35→20:37)
[2018-05-05] MEDS ORDERED: Albumin 25% 200 ML ONE (13:14)
[2018-05-05] MEDS: Albumin 25% 25 GM/100 ML BOT IVPB SCH (13:34)
[2018-05-05 13:49] LABS: Vancomycin, Random 15.1 ug/mL (See Comment)
--- NOTE | 2018-05-05 15:03 | PDOC.PN ---
- Subjective Encounter Start Date: 05/05/18 Encounter Start Time: 14:40 Subjective: f/u for ESRD on HD with hypotension. Receiving HD currently for 2 hours -: tx with Albumin x 2. Remains weak and deconditioned. - Objective Resuscitation Status: Resuscitation Status FULL:Full Resuscitation MAR Reviewed: Yes Vital Signs & Weight: Vital Signs (12 hours) Temp Pulse Resp BP Pulse Ox 05/05/18 08:00 97.4 F L 90 20 91/40 L 96 05/05/18 07:28 98 05/05/18 04:23 97.6 F 71 17 91/40 L 96 Weight Admit Weight 119 lb 14.903 oz Weight 119 lb 14.903 oz I&O: 05/04/18 05/05/18 05/06/18 06:59 06:59 06:59 Intake Total 718 1110 Balance 718 1110 Result Diagrams: 05/05/18 04:10 05/04/18 03:48 Additional Labs: Microbiology 05/03/18 08:51 Urine Straight Catheter Urine Culture - Final Yeast species 05/03/18 09:04 Venous blood - Left Hand Blood Culture - Preliminary Specimen has been received and culture in progress. No Growth to date. 05/03/18 09:04 Venous blood - Left Hand Blood Culture - Preliminary NO GROWTH AT 48 HOURS 05/03/18 09:04 Venous blood - Left Arm Blood Culture - Preliminary Specimen has been received and culture in progress. No Growth to date. 05/03/18 09:04 Venous blood - Left Arm Blood Culture - Preliminary NO GROWTH AT 48 HOURS 05/03/18 08:51 Urine Straight Catheter Urine Culture - Preliminary NO GROWTH AT 24 HOURS Laboratory Tests 05/03/18 05/04/18 05/04/18 08:36 03:48 03:48 WBC 10.9 H Hgb 9.9 L 8.3 L Cortisol 6.30 Random Vancomycin 05/04/18 03:48 WBC Hgb Cortisol Random Vancomycin 11.2 EKG Reviewed by me: Yes (Tele - SR in 80's) Phys Exam - Physical Examination frail, ill-appearing HEENT: PERRLA, sclera anicteric, oral pharynx no lesions Neck: no nodes, no JVD, supple, full ROM Respiratory: no wheezing, no rales, no rhonchi, clear to auscultation bilateral S1, S2 Cardiovascular: RRR, no significant murmur, no rub, gallop Gastrointestinal: soft, non-tender, no distention, positive bowel sounds Musculoskeletal: pulses present, edema present Neurological: normal sensation, moves all 4 limbs Skin: normal turgor, cap refill <2 seconds Dx/Plan (1) Sepsis Code(s): A41.9 - SEPSIS, UNSPECIFIED ORGANISM Status: Acute Comment: Suspected, continue Vancomycin/Rocephin x 24h then d/c (2) Hypotension Status: Chronic Comment: Likely chronic condition, continue Midodrine, avoid antihypertensives (3) ESRD (end stage renal disease) on dialysis Code(s): N18.6 - END STAGE RENAL DISEASE; Z99.2 - DEPENDENCE ON RENAL DIALYSIS Status: Chronic Comment: HD per Renal service, high risk for worsening hypotension, may need to consider Palliative care (4) Cirrhosis of liver Code(s): K74.60 - UNSPECIFIED CIRRHOSIS OF LIVER Status: Chronic Qualifiers: Ascites presence: with ascites Comment: Likely hepatorenal syndrome (5) Physical deconditioning Code(s): R53.81 - OTHER MALAISE Status: Chronic Comment: PT for functional assessment and mobilization (6) Anemia in CKD (chronic kidney disease) Code(s): N18.9 - CHRONIC KIDNEY DISEASE, UNSPECIFIED; D63.1 - ANEMIA IN CHRONIC KIDNEY DISEASE Status: Chronic Qualifiers: Chronic kidney disease stage: stage 5, not on chronic dialysis Qualified Code(s): N18.5 - Chronic kidney disease, stage 5; D63.1 - Anemia in chronic kidney disease Comment: No evidence of active blood loss, serial CBC - Plan plan discussed w/ family, continue antibiotics, PT/OT, licensed master social worker Continue HD today -: Palliative care consult -: Midodrine 10mg TID -: Continue Rocephin another 24h -: AM lab: BMP, H/H * Likely home 05/06/18
--- NOTE | 2018-05-05 15:13 | PDOC.EVN ---
Event Note - Event Note Event Note: ACP note Discussed goals of care with daughter in law and patient in context of ESRD with hemodialysis, cirrhosis, deconditioning and chronic hypotension. Palliative care being considered as potential for home. Pt remains deconditioned , weak and frail and unable to perform regular ADL's. Wants to return home and contemplating comfort and Palliative services but wants more information to assist making a decision. Currently remains a FULL CODE status. Palliative care consulted for additional discussions or philosophy and scope of care. Family and patient verbalize agreement. Total ACP time: 22min
[2018-05-05] MEDS: cefTRIAXone\\ROCEPHIN 2 GM in Sodium Chloride 0.9% 100 ML IVPB SCH (17:57)
--- NOTE | 2018-05-05 19:16 | PRG ---
DATE OF SERVICE: 05/05/2018 SUBJECTIVE: Patient was seen and examined at bedside and overnight events noted. Patient denies any shortness of breath or chest pain or palpitation. No history of nausea or vomiting or diarrhea or f ever or chills or cramps. OBJECTIVE: GENERAL: This is a thin built ill-looking female, in no apparent distress. VITAL SIGNS: Temperature 97.9, pulse 96, respiratory rate 18, blood pressure 105/47. HEENT: Atraumatic, normocephalic, Oral mucosa is moist. NECK: Supple. CARDIOVASCULAR: S1, S2 heard, rate and rhythm regular. RESPIRATORY: Clear to auscultation. GASTROINTESTINAL: Abdomen is soft. MUSCULOSKELETAL: (00:11) edema. DERMATOLOGIC: No skin rash NEUROLOGIC: Alert and awake and oriented x3. No focal neurologic deficits. Moving all the extremit ies. PSYCHIATRIC: Mood and affect normal. LABORATORY DATA: No labs done today. ASSESSMENT AND PLAN: 1. End-stage renal disease. We will continue hemodialysis as tolerated . 2. History of cirrhosis. 3. Hypertension, chronic. The patient is high risk for dialysis. We will continue on dialysis as tolerated.
[2018-05-06] MEDS ORDERED: Sodium Chloride 0.9% 250 ML 250 ML IVPB SCH (00:15)
[2018-05-06] MEDS: Albumin 25% 25 GM/100 ML BOT IVPB SCH ×3 (04:30→17:13)
[2018-05-06 04:47] LABS: Hemoglobin 7.2 g/dL (12.0-16.0)
[2018-05-06 05:03] LABS: Anion Gap 13 mmol/L (10-20); BUN (Urea Nitrogen) 22 mg/dL (9.8-20.1); Calc. Creatinine Clearance 9 mL/min (70-130); Calcium 7.8 mg/dL (7.8-10.44); Carbon Dioxide 26 mmol/L (23-31); Chloride 102 mmol/L (98-107); Estimated GFR-MDRD 10; Potassium 3.8 mmol/L (3.5-5.1); Sodium 137 mmol/L (136-145)
[2018-05-06 05:05] LABS: Glucose 55 mg/dL (83-110)
[2018-05-06] MEDS: Levothyroxine Sodium 88 MCG TAB PO SCH (05:48)
[2018-05-06] MEDS: Rifaximin 550 MG TAB PO SCH ×2 (08:42→20:20)
[2018-05-06] MEDS: Midodrine HCl 5 MG TAB PO SCH ×3 (08:42→20:19)
[2018-05-06] MEDS: cefTRIAXone\\ROCEPHIN 2 GM in Sodium Chloride 0.9% 100 ML IVPB SCH (17:13)
--- NOTE | 2018-05-06 18:22 | PRG ---
DATE OF SERVICE: 05/06/2018 SUBJECTIVE: Patient was seen and examined at bedside and overnight events noted. Patient denies any shortness of breath or chest pain or palpitation. No history of nausea or vomitin g or diarrhea or fever or chills or cramps. OBJECTIVE: GENERAL: This is a looking female, in no apparent distress. VITAL SIGNS: Temperature 97.7, pulse 80, respiratory rate 18, blood pressure 91/52. HEENT: Atraumatic, normocephalic. Oral mucosa is moist. NECK: Supple. CARDIOVASCULAR: S1 and S2 heard. Rate and rhythm regular. RESPIRATORY: Clear to auscultation. GASTROINTESTINAL: Abdomen is soft. MUSCULOSKELETAL: No tenderness. No edema. DERMATOLOGIC: No skin rash. NEUROLOGIC: Alert and awake and oriented x3. No focal neurologic deficits. Moving all the extremit ies. PSYCHIATRIC: Mood and affect normal. LABORATORY DATA: Potassium is 3.8, BUN 22, creatinine is 4.5. ASSESSMENT AND PLAN: 1. End-stage renal disease. We will continue dialysis if tolerated. The patient remains high risk for dialysis. Family is aware. Palliative care discussion going on. 2. History of cirrhosis. 3. Hypotension, which is chronic. 4. Edema, stable. The patient not currently hypoxic. Plan is to try dialysis tomorrow. If severely hypotensive, I hav e to stop dialysis and consider palliative care. Family is aware. I had a detailed discussion with son and .
--- NOTE | 2018-05-06 18:24 | PDOC.PN ---
- Subjective Encounter Start Date: 05/06/18 Encounter Start Time: 18:00 Subjective: f/u for ESRD on HD with hypotension and suspected sepsis. Feels ok -: overall but remains weak, deconditioned. Family deciding on palliative/ -: hospice care when returning home. - Objective Resuscitation Status: Resuscitation Status FULL:Full Resuscitation MAR Reviewed: Yes Vital Signs & Weight: Vital Signs (12 hours) Temp Pulse Resp BP BP Pulse Ox 05/06/18 17:07 97.8 F 75 90/53 L 96 05/06/18 12:29 94 L 05/06/18 12:28 97.7 F 88 18 91/52 L 94 L 05/06/18 09:48 97.8 F 75 16 89/48 L 94 L 05/06/18 08:31 83 85/45 L 05/06/18 08:00 94 L 05/06/18 07:31 98.5 F 80 28 H 83/45 L 94 L Weight Admit Weight 119 lb 14.903 oz Weight 119 lb 14.903 oz I&O: 05/05/18 05/06/18 05/07/18 06:59 06:59 06:59 Intake Total 1110 1135 800 Balance 1110 1135 800 Result Diagrams: 05/06/18 03:30 05/06/18 03:30 Additional Labs: Accuchecks 05/06/18 05/06/18 05:48 05:14 POC Glucose 90 79 Microbiology 05/03/18 08:51 Urine Straight Catheter Urine Culture - Final Yeast species 05/03/18 09:04 Venous blood - Left Hand Blood Culture - Preliminary Specimen has been received and culture in progress. No Growth to date. 05/03/18 09:04 Venous blood - Left Hand Blood Culture - Preliminary NO GROWTH AT 48 HOURS 05/03/18 09:04 Venous blood - Left Arm Blood Culture - Preliminary Specimen has been received and culture in progress. No Growth to date. 05/03/18 09:04 Venous blood - Left Arm Blood Culture - Preliminary NO GROWTH AT 48 HOURS 05/03/18 08:51 Urine Straight Catheter Urine Culture - Preliminary NO GROWTH AT 24 HOURS Laboratory Tests 05/03/18 05/04/18 05/04/18 08:36 03:48 03:48 WBC 10.9 H Hgb 9.9 L 8.3 L Cortisol 6.30 Random Vancomycin 05/04/18 05/05/18 05/05/18 03:48 04:10 13:05 WBC Hgb 8.7 L Cortisol Random Vancomycin 11.2 15.1 EKG Reviewed by me: Yes (Tele - SR) Phys Exam - Physical Examination Constitutional: NAD alert, frail, responds to questions HEENT: PERRLA, sclera anicteric, oral pharynx no lesions Neck: no nodes, no JVD, supple, full ROM Respiratory: no wheezing, no rales, no rhonchi, clear to auscultation bilateral S1, S2 Cardiovascular: RRR, no significant murmur, no rub, gallop Gastrointestinal: soft, non-tender, no distention, positive bowel sounds Musculoskeletal: no edema, pulses present Neurological: normal sensation, moves all 4 limbs Skin: normal turgor, cap refill <2 seconds Dx/Plan (1) Sepsis Code(s): A41.9 - SEPSIS, UNSPECIFIED ORGANISM Status: Acute Comment: Suspected, d/c Vancomycin, continue Rocephin another 24h (2) Hypotension Status: Chronic Comment: Likely chronic condition, continue Midodrine, avoid antihypertensives (3) ESRD (end stage renal disease) on dialysis Code(s): N18.6 - END STAGE RENAL DISEASE; Z99.2 - DEPENDENCE ON RENAL DIALYSIS Status: Chronic Comment: HD per Renal service, high risk for worsening hypotension, poor prognosis, family considering Palliative/hospice care for discharge (4) Cirrhosis of liver Code(s): K74.60 - UNSPECIFIED CIRRHOSIS OF LIVER Status: Chronic Qualifiers: Ascites presence: with ascites Comment: Likely hepatorenal syndrome (5) Physical deconditioning Code(s): R53.81 - OTHER MALAISE Status: Chronic Comment: PT for functional assessment and mobilization (6) Anemia in CKD (chronic kidney disease) Code(s): N18.9 - CHRONIC KIDNEY DISEASE, UNSPECIFIED; D63.1 - ANEMIA IN CHRONIC KIDNEY DISEASE Status: Chronic Qualifiers: Chronic kidney disease stage: stage 5, not on chronic dialysis Qualified Code(s): N18.5 - Chronic kidney disease, stage 5; D63.1 - Anemia in chronic kidney disease Comment: No evidence of active blood loss, serial CBC - Plan plan discussed w/ family, continue antibiotics, social sciences research scientist Poor prognosis -: Plan for Palliative/hospice care after d/c -: HD in am -: D/C Vancomycin -: D/C home in am after HD * .
[2018-05-06] MEDS ORDERED: Sodium Chloride 0.9% 250 ML 250 ML IVPB PRN (20:43)
[2018-05-07 05:46] LABS: Anion Gap 12 mmol/L (10-20); BUN (Urea Nitrogen) Less than 4 mg/dL (9.8-20.1); Calc. Creatinine Clearance 8 mL/min (70-130); Calcium 8.3 mg/dL (7.8-10.44); Carbon Dioxide 26 mmol/L (23-31); Chloride 103 mmol/L (98-107); Estimated GFR-MDRD 8; Glucose 68 mg/dL (83-110); Potassium 3.7 mmol/L (3.5-5.1); Sodium 137 mmol/L (136-145)
[2018-05-07] MEDS: Levothyroxine Sodium 88 MCG TAB PO SCH (05:48)
[2018-05-07] MEDS ORDERED: Sterile Water 10 ML VIAL IVP SCH (08:00)
[2018-05-07] MEDS ORDERED: Activase 2 MG VIAL CATH SCH (08:00)
[2018-05-07] MEDS ORDERED: Epoetin (NON-ESRD) 20,000 UNITS/ML ML IVP SCH (09:00)
[2018-05-07] MEDS: Rifaximin 550 MG TAB PO SCH (09:29)
[2018-05-07] MEDS: Midodrine HCl 5 MG TAB PO SCH ×2 (09:29→16:21)
[2018-05-07] MEDS ORDERED: Albumin 25% 25 GM/100 ML BOT IVPB SCH (09:45)
[2018-05-07] MEDS ORDERED: Heparin 1,000 UNITS/ML VIAL ONE (11:11)
--- NOTE | 2018-05-07 11:25 | DIS ---
DATE OF ADMISSION: 05/03/2018 DATE OF DISCHARGE: 05/07/2018 DISCHARGE DIAGNOSES: 1. Sepsis, suspected, no organism identified. 2. Hypotension, chronic, multifactorial. 3. End-stage renal disease, on dialysis. 4. End-stage cirrhosis of the liver. 5. Physical deconditioning. 6. Anemia and chronic kidney disease. CONSULTATIONS: Dr. Masters with Nephrology service. PERTINENT LABORATORY AND X-RAY FINDINGS: Creatinine ranged between 4.52-6.26, estimated GFR ranged b etween 7-10. Lactic acid level ranged between 2.3-2.8. Lipase 38. Serum cortisol level 6.3. CBC s howed a white blood cell count ranged between 8.8-10.9, hemoglobin ranged between 7.2-9.9, MCV 106. Blood cultures x2 dated 05/03/2018 showed no growth at 48 hours. Urine culture dated 05/03/2018 show ed 25,000-50,000 colonies of yeast species. Portable chest x-ray dated 05/03/2018 showed no acute ca rdiopulmonary process. HOSPITAL COURSE: The patient was initially admitted to the intermediate care unit after presenting w ith hypotension with initial blood pressures in the 70s/40s. The patient was unable to complete her regular hemodialysis session due to hypotension and referred to [facility] for further evalu ation. The patient was evaluated with sepsis criteria met and placed on broad-spectrum IV antibiotic therapy with vancomycin and Zosyn. The patient also received intravenous normal saline with improve ment in overall systolic values. The patient continued on volume resuscitation and avoidance of any antihypertensive medications. Blood cultures did not reveal any specific source of infectious proces s and patient was continued on Rocephin and vancomycin throughout the remainder of the hospital cours e. The patient continued to exhibit hypotension, severe deconditioning, and generalized weakness. T he patient underwent dialysis x2 sessions, and during the inpatient stay, requiring albumin infusions for stabilization of pressure during the sessions. Due to patient's overall comorbid status, persis tent hypotension, end-stage renal and liver disease, discussions were held with the family regarding palliative care measures. The patient and family have decided to pursue palliative and hospice care after discharge and to discontinue hemodialysis sessions. I have examined the patient at the time of discharge and discussed followup instructions with the family. The patient is ready for discharge o n 05/07/2018. DISCHARGE MEDICATIONS: 1. Lactulose 10 grams p.o. b.i.d. 2. Levothyroxine 88 mcg p.o. daily. 3. Midodrine 10 mg p.o. t.i.d. 4. Protonix 40 mg p.o. b.i.d. 5. Xifaxan 550 mg p.o. b.i.d. FOLLOWUP: The patient may follow up with her primary care provider, Dr. Ole Israel, within 7 days of discharge. CONDITION ON DISCHARGE: Guarded. ACTIVITY: Ad stephani. DIET: Regular. CODE STATUS: DO NOT RESUSCITATE. SPECIAL INSTRUCTIONS: Patient will receive home hospice services on discharge. DISPOSITION: Home with hospice on 05/07/2018. Total time in preparing and coordinating discharge, 35 minutes.
[2018-05-07 11:42] VITALS: TEMP 97.9
[2018-05-07 13:07] VITALS: BP 104/52
--- NOTE | 2018-05-07 18:03 | PRG ---
DATE OF SERVICE: 05/07/2018 SUBJECTIVE: Patient was seen and examined at bedside and overnight events noted. Patient denies any shortness of breath or chest pain or palpitation. No history of nausea or vomiting or diarrhea or fever or chills or cramps. OBJECTIVE: GENERAL: This is a frail-looking female in no apparent distress. VITAL SIGNS: Temperature 97.9, pulse 77, respiratory rate 20, blood pressure 104/52. HEENT: Atraumatic, normocephalic. Oral mucosa is moist. NECK: Supple CARDIOVASCULAR: S1, S2 heard. Rate and rhythm regular. RESPIRATORY: Clear to auscultation. GASTROINTESTINAL: Abdomen is soft. MUSCULOSKELETAL: No tenderness, no edema. DERMATOLOGIC: No skin rash. NEUROLOGIC: Alert, awake, and oriented x3. No focal neurologic deficits. Moving all the extremities. PSYCHIATRIC: Mood and affect normal. LABORATORY DATA: Potassium is 3.7, creatinine is 5.3. ASSESSMENT AND PLAN: 1. End-stage renal disease. Continue on dialysis as tolerated, but the patient is high risk for dialysis with hypotension. 2. Hypotension. 3. Edema- limit fluid intake. 4. Cirrhosis - with hypotension. Difficult to have UF. The patient is unable to have outpatient dialysis. Agree with hospice evaluation. MTDD
--- NOTE | 2018-05-08 21:31 | EKG ---
Test Reason : HYPOTENSION Blood Pressure : / mmHG Vent. Rate : 085 BPM Atrial Rate : 535 BPM P-R Int : 000 ms QRS Dur : 098 ms QT Int : 422 ms P-R-T Axes : 000 -24 016 degrees QTc Int : 502 ms Atrial fibrillation with a competing junctional pacemaker Incomplete right bundle branch block Prolonged QT Left axis deviation Abnormal ECG Confirmed by SINTIA LAW, LAYTON ([id number]), online editor HANNAH WALLACE ([id number]) on 05/08/2018 9:30:58 PM Referred By: NAZARIO Confirmed By:LAYTON PATRICIO MD
== END 2018-05-07 16:19 | disposition home or self-care (01) | DRG 871 ==
LOC: ERS 08:17 → IMCU/EMU 11:23 → 2NO 05-06 09:40
PROVIDERS: ADMIT Family Medicine; ATTEND Family Medicine
PROC: 5A1D70Z Performance of Urinary Filtration, Intermittent, Less than 6 Hours Per Day (ICD-10-PCS; principal; 2018-05-03)
DX: A41.9 Sepsis, unspecified organism (principal); N18.6 End stage renal disease; K76.7 Hepatorenal syndrome; N39.0 Urinary tract infection, site not specified; E87.2 Acidosis; Z99.2 Dependence on renal dialysis; I95.9 Hypotension, unspecified; K74.60 Unspecified cirrhosis of liver; D63.1 Anemia in chronic kidney disease; Z79.899 Other long term (current) drug therapy; Z66 Do not resuscitate; Z51.5 Encounter for palliative care
CPT/HCPCS: 36415; 36416; 51701; 71045; 80048; 80053; 80202; 81003; 81015; 82330; 82533; 82553; 82803; 83605; 83690; 84484; 85007; 85014; 85018; 85025; 85027; 85610; 85730; 87040; 87086; 90935; 93005; 94760; 96361; 96365; 96367; A4216; A4353; G0257; G8978-GP-CM; G8979-GP-CK; J0696; J0885; J1644; J2405; J2543; J2997; J3370; J7050; P9047; Q0162